=== PATIENT | female | born 2000 | race African-American/Black ===

== ENCOUNTER 2023-01-18 18:16 | Emergency (ER) | payer MEDICAID ==
[~2023-01-18] VITALS: Ht 172.7 cm; Wt 111.4 kg
[2023-01-18 18:37] VITALS: O2SAT 100
[2023-01-18 19:18] LABS: HEMOGLOBIN. 14.1 g/dL (12.0-16.0); MEAN CORPUSCULAR HEMOGLOBIN 30.6 pg (28.0-32.0); MEAN PLATELET VOLUME 9.4 fl (7.4-10.4); PLATELET 280 x1000/uL (130-400); RED BLOOD CELL COUNT 4.61 mill/uL (4.2-5.4); RED CELL DISTRIBUTION WIDTH 12.8 % (11.6-14.6)
[2023-01-18 19:23] LABS: CHLORIDE 108 mEq/L (98-107)
[2023-01-18 19:26] LABS: CLARITY URINE CLEAR (CLEAR); COLOR URINE DARK YELLOW (YELLOW); KETONES URINE 4+ (NEGATIVE); LEUKOCYTE ESTERASE URINE TRACE (NEGATIVE); NITRITE URINE NEGATIVE (NEGATIVE); OCCULT BLOOD URINE 1+ (NEGATIVE); PH URINE 6.5 (4.5-8.0); PROTEIN URINE TRACE (NEGATIVE); SPECIFIC GRAVITY URINE 1.036 (1.005-1.030)
[2023-01-18 20:28] LABS: PLATELET ESTIMATE NORMAL
[2023-01-18] MEDS ORDERED: ONDANSETRON HCL 4MG/2ML INJ IV STA (21:28)
[2023-01-18] MEDS ORDERED: MORPHINE SULFATE 4 MG/ML CPJ (NOT FOR IM USE) IV STA (21:28)
[2023-01-18] MEDS ORDERED: SODIUM CHLORIDE 0.9% 1,000 ML IV ONE (21:30)
[2023-01-18 22:11] LABS: HCG SCREEN NEGATIVE
[2023-01-19] MEDS ORDERED: IBUP-2028 MT (00:10)
[2023-01-19] MEDS ORDERED: ONDA4TAB11 PO (00:16)
[2023-01-19] MEDS ORDERED: ONDANSETRON HCL 4MG/2ML INJ IV NR (02:30)
[2023-01-19] MEDS ORDERED: MORPHINE SULFATE 4 MG/ML CPJ (NOT FOR IM USE) IV NR (02:30)
[2023-01-19 03:55] VITALS: BP 102/63; PULSE 75; RESP 20; TEMP 98.4
== END 2023-01-19 03:58 | disposition home or self-care (01) ==
LOC: ER 18:16
DX: R11.2 Nausea with vomiting, unspecified (principal); R10.84 Generalized abdominal pain; K80.50 Calculus of bile duct without cholangitis or cholecystitis without obstruction; J45.909 Unspecified asthma, uncomplicated
CPT/HCPCS: 80053; 81003; 81025; 82962; 84703; 83690; 85025; 36415; 71045; 74176; 93005; 99285; 76705; 96361; 96374; 96375; J7030; J2405; J2270; Z7610 ×2

== ENCOUNTER 2023-05-16 13:03 | Emergency (ER) | payer MEDICAID ==
[~2023-05-16] VITALS: Ht 175.3 cm; Wt 86.0 kg
[~2023-05-16 13:03] MED LIST: IBUP-2028 MT; ONDA4TAB11 PO
[2023-05-16 13:13] VITALS: BP 113/68; PULSE 96; RESP 20; TEMP 98.1; O2SAT 98
== END 2023-05-16 18:17 | disposition left against medical advice (07) ==
LOC: ER 13:03
DX: R05.9 Cough, unspecified (principal); Z53.21 Procedure and treatment not carried out due to patient leaving prior to being seen by health care provider
CPT/HCPCS: 99281